=== PATIENT | female | born 1930 | race Caucasian/White ===

== ENCOUNTER 2016-12-30 09:38 | Outpatient (CLI) | payer MEDICARE ==
--- NOTE | 2016-12-30 12:28 | CT ---
CT CHEST WITHOUT CONTRAST: Technique: Multiple axial tomograms were obtained through the chest without IV enhancement. History: Follow up pulmonary nodule seen on prior CT. Comparison: 01-01-16 FINDINGS: In the right lung a small nodular pleural based density in the right apex measuring approximately 5 mm is unchanged. There continues to be a subtle ground glass nodular density in the right lower lobe near the fissure measuring approximately 9 mm. This is stable from prior exam. There are scattered calcified nodules seen in the right lung. Mild linear stranding in the right leah g base is stable. In the left lung there are scattered calcified granuloma. Tiny 4 mm nodule along the fissure in the left midlung is stable. Scattered calcified granuloma on the left are unchanged. Calcified hilar lymph nodes again noted. Images through the upper abdomen appear unremarkable. IMPRESSION: 1. Small bilateral pulmonary nodular densities are stable when compared to the prior exam. POS: JANNETTE
== END 2016-12-30 09:39 | disposition home or self-care (01) ==
LOC: CT 09:38
PROVIDERS: ATTEND Internal Medicine
DX: R91.1 Solitary pulmonary nodule (principal); R91.8 Other nonspecific abnormal finding of lung field
CPT/HCPCS: 71250